=== PATIENT | female | born 2000 | race Hispanic/Latino ===

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

== ENCOUNTER 2020-01-26 19:40 | Day surgery (SDC) | payer OTHER ==
[2020-01-26 20:11] VITALS: BP 119/69; TEMP 99; BMI 24.2
[2020-01-26] MEDS ORDERED: hydrALAZINE 20 MG/ML VIAL SLOW IVP PRN (21:03)
--- NOTE | 2020-01-27 07:45 | SS ---
DATE OF ADMISSION: 01/26/2020 DATE OF DISCHARGE: 01/26/2020 REGULAR PHYSICIAN: Howard Jacques MD EVALUATING PHYSICIAN: Quinton Christina MD CHIEF COMPLAINT: Contractions. HISTORY OF PRESENT ILLNESS: Ms. Ortiz is a 19-year-old G1, P0 with an estimated date of confinement of 02/06/2020, who presents complaining of irregular uterine contractions since earlier in the day. She denies ruptured membranes or vaginal bleeding. Her care has been with Dr. Jacques. She was examined in the office this week and was noted to be 2 cm. PAST MEDICAL HISTORY: None. PAST SURGICAL HISTORY: None. CURRENT MEDICATIONS: vitamins. ALLERGIES: NO KNOWN ALLERGIES. SOCIAL HISTORY: Denies tobacco, alcohol, or drug use. FAMILY HISTORY: Unremarkable. REVIEW OF SYSTEMS: Denies nausea, vomiting, fever, chills, ruptured membranes, or decreased movement. PHYSICAL EXAMINATION: VITAL SIGNS: In triage, her vital signs are stable and she is afebrile. GENERAL: She is in no acute distress. ABDOMEN: Soft, nontender, and gravid. Initial pelvic exam shows her to be 2 cm dilated, 70% effaced with the vertex presenting. heart rate tracing shows spontaneous accelerations with good [id number] variability. Mild uterine contractions are seen every 5 minutes. The patient is re-examined after an hour and her cervix remains unchanged. Examination was repeated due to the fact that she lives in [place]. ASSESSMENT: 1. 38-week intrauterine . 2. Prodromal labor. PLAN: Labor precautions were reviewed with her in detail. She was told to wait until the contractions are hard, firm, and uncomfortable every 3 to 5 minutes for at least an hour and at that point to return to the hospital for re-evaluation. Her family voices understanding of these instructions and she was sent home in good condition. Job ID: [id number]
== END 2020-01-26 21:34 | disposition home or self-care (01) ==
LOC: L&D/OP 19:40
PROVIDERS: ATTEND Family Medicine
DX: O47.1 False labor at or after 37 completed weeks of gestation (principal); Z3A.38 38 weeks gestation of pregnancy
CPT/HCPCS: 99283

== ENCOUNTER 2020-02-02 14:55 | Inpatient (IN) | payer MEDICAID, OTHER, SELFPAY ==
[2020-02-02] MEDS ORDERED: hydrALAZINE 20 MG/ML VIAL SLOW IVP PRN ×2 (15:43→16:19)
[2020-02-02 15:58] VITALS: BMI 25.7
[2020-02-02 16:05] LABS: Amnisure Test RUPTURE DETECTED (No Rupture)
[2020-02-02 16:06] LABS: Amnisure Internal Control QC ACCEPTABLE (ACCEPTABLE)
[2020-02-02] MEDS ORDERED: Acetaminophen 500 MG TAB PO PRN (16:19)
[2020-02-02] MEDS ORDERED: NS / Oxytocin 40 units/1000ml 1,000 ML IV PRN (16:19)
[2020-02-02] MEDS ORDERED: Diphenoxylate HCl/Atropine Tablet PO PRN ×2 (16:19)
[2020-02-02] MEDS ORDERED: Carboprost 250 MCG/ML AMP IM PRN (16:19)
[2020-02-02] MEDS ORDERED: Methylergonovine 0.2 MG/ML VIAL IM PRN (16:19)
[2020-02-02] MEDS ORDERED: Ondansetron PF 4 MG/2 ML Vial IVP PRN (16:19)
[2020-02-02] MEDS ORDERED: Promethazine HCl 25 MG/ML VIAL IM PRN (16:19)
[2020-02-02] MEDS ORDERED: HYDROcodone/Acetaminophen 5/325 mg Tablet PO PRN ×2 (16:19)
[2020-02-02] MEDS ORDERED: Misoprostol 200 MCG TAB PR PRN (16:19)
[2020-02-02] MEDS ORDERED: Lidocaine 1% (PF) 30 ML VIAL SC PRN (16:19)
[2020-02-02] MEDS ORDERED: Ibuprofen 800 MG TAB PO PRN (16:19)
[2020-02-02] MEDS ORDERED: NS w/ Oxytocin 10 units 500 ML IV SCH (16:30)
[2020-02-02] MEDS: Lactated Ringer's 1,000 ML IV SCH ×2 (16:45→21:47)
[2020-02-02 17:05] LABS: Hemoglobin 11.2 g/dL (12.0-16.0); Mean Corpuscular HGB CONC 33.6 g/dL (32.0-36.0); Mean Corpuscular Hemoglobin 30.6 pg (25.0-35.0); Mean Corpuscular Volume 91.1 fL (78.0-98.0); Platelet Count 214 thou/uL (130-400); RBC Distribution Width 13.5 % (11.5-14.5); Red Blood Cell (RBC) Count 3.67 mill/uL (4.00-5.20); White Blood Cell (WBC) Count 10.1 thou/uL (4.8-10.8)
[2020-02-02 17:45] LABS: Syphilis Antibody Nonreactive (Nonreactive); Syphilis Antibody Index 0.03 S/CO (<1.00 Non-Reactive)
[2020-02-02 17:46] LABS: Hep B Surf Ag Non-Reactive S/CO (NonReactive)
[2020-02-02] MEDS: Butorphanol Tartrate 1 MG/ML VIAL SLOW IVP PRN ×2 (19:53→21:46)
[2020-02-02] MEDS ORDERED: Lidocaine 1% (PF) 30 ML VIAL ONE (22:00)
[2020-02-03] MEDS: Butorphanol Tartrate 1 MG/ML VIAL SLOW IVP PRN (00:15)
[2020-02-03] MEDS ORDERED: Tranexamic Acid 1,000 MG/10 ML VIAL ONE ×2 (02:19→02:21)
[2020-02-03] MEDS ORDERED: Carboprost 250 MCG/ML AMP ONE (02:20)
[2020-02-03] MEDS ORDERED: Ketamine 50 MG/ML (10ML VIAL) ONE (02:27)
[2020-02-03] MEDS ORDERED: Fentanyl 100 MCG/2 ML VIAL ONE (02:28)
[2020-02-03] MEDS ORDERED: Midazolam HCl 2 mg/2 ml Vial ONE ×2 (02:28→02:54)
[2020-02-03] MEDS: NS / Oxytocin 40 units/1000ml 1,000 ML ONE (04:46)
[2020-02-03] MEDS: Carboprost 250 MCG/ML AMP ONE (04:49)
[2020-02-03] MEDS: metroNIDAZOLE 500 MG in Premix Bag 1 BAG IVPB SCH (04:54)
[2020-02-03] MEDS: Lactated Ringer's 1,000 ML IV SCH ×2 (04:57→04:58)
[2020-02-03] MEDS ORDERED: Azithromycin 500 MG in Sodium Chloride 0.9% 250 ML 250 ML IVPB SCH (05:00)
[2020-02-03] MEDS ORDERED: FLU VACC QS2019-20(6MOS UP)/PF 60 MCG/0.5 ML SYRINGE IM ONE (09:00)
[2020-02-03] MEDS: CEFAZOLIN 2 GM in Premix Bag 1 BAG IVPB SCH ×3 (09:03→22:34)
[2020-02-03] MEDS ORDERED: Ondansetron PF 4 MG/2 ML Vial IVP PRN (14:25)
[2020-02-03] MEDS ORDERED: diphenhydrAMINE 25 MG CAP PO PRN (14:25)
[2020-02-03] MEDS ORDERED: hydrALAZINE 20 MG/ML VIAL SLOW IVP PRN (14:25)
[2020-02-03] MEDS ORDERED: Diphenoxylate HCl/Atropine Tablet PO PRN (14:25)
[2020-02-03] MEDS ORDERED: Milk Of Magnesia 30 ML UDCUP PO PRN (14:25)
[2020-02-03] MEDS ORDERED: Lanolin Ointment 7 GM TUBE TOP PRN (14:25)
[2020-02-03] MEDS ORDERED: Bisacodyl 10 MG SUPP PR PRN (14:25)
[2020-02-03] MEDS ORDERED: Promethazine HCl 25 MG/ML VIAL IM PRN (14:25)
[2020-02-03] MEDS ORDERED: HYDROcodone/Acetaminophen 5/325 mg Tablet PO PRN ×2 (14:25)
[2020-02-03] MEDS ORDERED: NS / Oxytocin 40 units/1000ml 1,000 ML IV SCH (14:25)
[2020-02-03 15:04] LABS: Hemoglobin 8.9 g/dL (12.0-16.0); Mean Corpuscular HGB CONC 34.8 g/dL (32.0-36.0); Mean Corpuscular Hemoglobin 30.7 pg (25.0-35.0); Mean Corpuscular Volume 88.1 fL (78.0-98.0); Mean Platelet Volume 7.7 fL (7.4-10.4); Platelet Count 157 thou/uL (130-400); RBC Distribution Width 14.4 % (11.5-14.5); Red Blood Cell (RBC) Count 2.91 mill/uL (4.00-5.20); White Blood Cell (WBC) Count 11.1 thou/uL (4.8-10.8)
[2020-02-03] MEDS: Docusate Calcium (SURFAK) 240 MG CAP PO SCH (21:55)
[2020-02-03] MEDS: Ibuprofen 800 MG TAB PO SCH (21:55)
[2020-02-03] MEDS: Ferrous Sulfate 325 MG TAB PO SCH (22:02)
[2020-02-04] MEDS: metroNIDAZOLE 500 MG in Premix Bag 1 BAG IVPB SCH ×4 (00:30→10:33)
[2020-02-04 06:34] LABS: Hemoglobin 8.1 g/dL (12.0-16.0); Mean Corpuscular HGB CONC 34.7 g/dL (32.0-36.0); Mean Corpuscular Hemoglobin 30.9 pg (25.0-35.0); Mean Corpuscular Volume 89.1 fL (78.0-98.0); Mean Platelet Volume 7.7 fL (7.4-10.4); Platelet Count 141 thou/uL (130-400); RBC Distribution Width 14.4 % (11.5-14.5); Red Blood Cell (RBC) Count 2.61 mill/uL (4.00-5.20); White Blood Cell (WBC) Count 10.3 thou/uL (4.8-10.8)
[2020-02-04] MEDS: Ibuprofen 800 MG TAB PO SCH ×3 (06:55→21:28)
[2020-02-04] MEDS: CEFAZOLIN 2 GM in Premix Bag 1 BAG IVPB SCH ×2 (06:55→23:00)
[2020-02-04] MEDS ORDERED: Prenatal Vitamin 1 TAB PO SCH (09:00)
[2020-02-04] MEDS ORDERED: Adacel (T-DAP) 0.5 ML SYRINGE IM ONE (09:00)
[2020-02-04] MEDS: Ferrous Sulfate 325 MG TAB PO SCH ×2 (09:47→18:39)
[2020-02-04] MEDS: Docusate Calcium (SURFAK) 240 MG CAP PO SCH ×2 (09:48→21:28)
[2020-02-05] MEDS: Ibuprofen 800 MG TAB PO SCH (04:56)
[2020-02-05 04:57] VITALS: TEMP 98.7
[2020-02-05 08:37] VITALS: BP 107/55
== END 2020-02-05 09:53 | disposition home or self-care (01) | DRG 806 ==
LOC: L&D/OP 14:55 → L&D 16:25 → 3SW 02-03 18:47
PROVIDERS: ADMIT Family Medicine; ATTEND Family Medicine
PROC: 10E0XZZ Delivery of Products of Conception, External Approach (ICD-10-PCS; principal; 2020-02-02)
DX: O42.92 Full-term premature rupture of membranes, unspecified as to length of time between rupture and onset of labor (principal); O72.1 Other immediate postpartum hemorrhage; Z37.0 Single live birth; Z3A.39 39 weeks gestation of pregnancy
CPT/HCPCS: 36415; 36430; 51702; 84112; 85027; 86780; 86850; 86900; 86901; 87340; 99285; J0456; J0595; J0690; J2001; J2210; J2250; J2590; J3010; J3490; J7050; P9016; P9035; P9048; P9059